=== PATIENT | female | born 1985 | race Caucasian/White ===

== ENCOUNTER → 2017-04-21 | Outpatient (CLI) | payer OTHER ==
[~2017-04-21] MED LIST: PREN1TAB29
[2017-04-21 10:48] LABS: CHOLESTEROL/HDL RATIO 5.5
== END | disposition home or self-care (01) ==
LOC: C.LAB 08:20
PROVIDERS: ATTEND Internal Medicine
DX: Z00.00 Encounter for general adult medical examination without abnormal findings (principal); Z13.220 Encounter for screening for lipoid disorders

== ENCOUNTER → 2018-05-02 | Outpatient (CLI) | payer OTHER | END | disposition home or self-care (01) | LOC: C.LABBFT 07:40 | PROVIDERS: ATTEND Nurse Practitioner | DX: Z13.220 Encounter for screening for lipoid disorders (principal); Z13.1 Encounter for screening for diabetes mellitus ==

== ENCOUNTER → 2018-05-17 | Outpatient (CLI) | payer OTHER | END | disposition home or self-care (01) | LOC: C.LABSPEC 17:26 | PROVIDERS: ATTEND Obstetrics & Gynecology | DX: Z34.81 Encounter for supervision of other normal pregnancy, first trimester (principal) ==

== ENCOUNTER 2018-12-14 12:47 | Inpatient (IN) ==
[2018-12-14] MEDS ORDERED: OXYTOCIN 30 UNITS/500 ML BAG IV PRN ×2 (12:52→14:10)
[2018-12-14] MEDS ORDERED: LACTATED RINGER'S 1,000 ML IV PRN (12:52)
--- NOTE | 2018-12-14 12:56 | History & Physical Report ---
Date of Service December 14, 2018 38 weeks gestation group B strep positive third baby arrives in active labor at 9 cm bulging membranes will admit start IV antibiotics patient requests epidural otherwise uncomplicated 2 prior vaginal births History of Present Illness Primary Care Provider: Harmony Peña MD Allergies Allergy/AdvReac Type Severity Reaction Status Date / Time No Known Allergies Allergy Unknown Verified 09/19/15 02:46 Home Medications Home Medications Medication Instructions Recorded Confirmed Type VIT W/ FERROUS FUMARA #0 09/19/15 History () Physical Exam Vital Signs (Past 24 Hours): Last Vital Signs Pulse 115 H 12/14/18 12:51 BP 141/63 H 12/14/18 12:51
[2018-12-14] MEDS ORDERED: PENICILLIN G POTASSIUM 6 MU in DEXTROSE 5% 250 ML IV ONE (13:00)
[2018-12-14] MEDS ORDERED: LACTATED RINGER'S 1,000 ML IV SCH (13:00)
--- NOTE | 2018-12-14 13:13 | Procedure Note ---
Vaginal Delivery Summary Date of Service December 14, 2018 Patient arrived at 9 cm at that states the patient could no longer with withhold pushing and requested to push she did membranes ruptured on exam and pushed over 1 contraction baby delivered in occiput anterior position clear fluid no nuchal cord easy delivery no excessive force live vigorous female infant no significant tearing placenta removed by gentle traction IV Pitocin started estimate blood loss 200 mL sponge and instrument counts correct
[2018-12-14] MEDS ORDERED: SUPERCREAM 0.870% 15 GM JAR EXT PRN (14:10)
[2018-12-14] MEDS ORDERED: ACETAMINOPHEN 325 MG TAB PO PRN (14:10)
[2018-12-14] MEDS ORDERED: BENZOCAINE 20% AER SPR 82.5 GM CAN EXT PRN (14:10)
[2018-12-14] MEDS ORDERED: IBUPROFEN 600 MG TAB PO PRN (14:10)
[2018-12-14] MEDS ORDERED: HYDROCORTISONE ACETATE 25 MG SUPP PR PRN (14:10)
[2018-12-14] MEDS ORDERED: DIPHTHERIA/TETANUS/PERTUSSIS 0.5 ML SYR/VIAL IM ONE (14:10)
[2018-12-14 14:11] LABS: Hematocrit (blood only) 37.4 % (37-47); Hemoglobin 12.7 g/dL (12.0-16.0); Mean Corpuscular Volume 88.2 fL (80-100); Mean Platelet Volume 11.9 fL (7.4-10.4); Platelet Count 148 K/uL (130-400); RDW Coefficient of Variation 13.8 % (11.5-14.5); RDW Standard Deviation 44.5 fL (36.4-46.3); Red Blood Count 4.24 M/uL (4.2-5.4); White Blood Count 9.92 K/uL (4.8-10.8)
[2018-12-14] MEDS ORDERED: PENICILLIN G POTASSIUM 3 MU in DEXTROSE 5% 100 ML IV PRN (17:00)
[2018-12-14] MEDS: DOCUSATE SODIUM 100 MG CAP PO SCH (19:55)
[2018-12-15 07:45] LABS: Hematocrit (blood only) 35.1 % (37-47); Mean Corpuscular Hgb Conc 34.2 g/dL (32-36); Mean Corpuscular Volume 88.2 fL (80-100); Mean Platelet Volume 11.3 fL (7.4-10.4); Platelet Count 145 K/uL (130-400); RDW Coefficient of Variation 13.7 % (11.5-14.5); RDW Standard Deviation 44.3 fL (36.4-46.3); Red Blood Count 3.98 M/uL (4.2-5.4); White Blood Count 8.56 K/uL (4.8-10.8)
--- NOTE | 2018-12-15 08:43 | Obstetrical Progress Note ---
Date of Service December 15, 2018 day #1 from spontaneous vaginal delivery patient is well ambulating well tolerating an oral diet no extremity pain Assessment & Plan (1) Spontaneous vaginal delivery: day #1 continue current care Physical Exam Vital Signs (Past 24 Hours) Last Vital Signs Temp 36.7 C 12/15/18 03:25 Pulse 74 12/15/18 03:25 Resp 18 12/15/18 03:25 BP 141/83 H 12/15/18 03:25 Vital signs are stable she is afebrile extremity exam negative
[2018-12-15] MEDS: SERTRALINE HCL 100 MG TABLET PO SCH (08:57)
[2018-12-15] MEDS: DOCUSATE SODIUM 100 MG CAP PO SCH ×2 (08:57→20:37)
[2018-12-15] MEDS: PRENATAL VITAMIN 1 TAB PO SCH (08:57)
[2018-12-15] MEDS ORDERED: BISACODYL 5 MG TABEC PO SCH (20:00)
[2018-12-16] MEDS ORDERED: BISACODYL 10 MG SUPP PR PRN (06:00)
--- NOTE | 2018-12-16 07:35 | Obstetrical Progress Note ---
Date of Service December 16, 2018 day #2 patient wishes to go home she is ablating well no extremity pain minimal bleeding Assessment & Plan (1) Spontaneous vaginal delivery: home Physical Exam Vital Signs (Past 24 Hours) Last Vital Signs Temp 36.7 C 12/15/18 23:25 Pulse 69 12/15/18 23:25 Resp 18 12/15/18 23:25 BP 134/84 12/15/18 23:25 Pulse Ox 99 12/15/18 11:15 Uterus firm nontender extremity exam negative
[2018-12-16] MEDS: DOCUSATE SODIUM 100 MG CAP PO SCH (09:15)
[2018-12-16] MEDS: SERTRALINE HCL 100 MG TABLET PO SCH (09:15)
[2018-12-16] MEDS: PRENATAL VITAMIN 1 TAB PO SCH (09:15)
[2018-12-16 09:27] LABS: Hematocrit (blood only) 35.8 % (37-47); Hemoglobin 12.1 g/dL (12.0-16.0)
== END 2018-12-16 17:29 | disposition home health service (06) | DRG 807 ==
LOC: OPB 12:47 → 4S1 12:49 → 4S2 16:45